=== PATIENT | female | born 2000 | race Two or more races ===

== ENCOUNTER 2021-08-08 15:40 | Outpatient (CLI) | payer OTHER | END 2021-08-08 16:58 | disposition home or self-care (01) | LOC: PRENATAL 15:40 | PROVIDERS: ATTEND Obstetrics & Gynecology Maternal & Fetal Medicine | DX: O35.0XX0 Maternal care for (suspected) central nervous system malformation in fetus, not applicable or unspecified (principal); O35.3XX0 Maternal care for (suspected) damage to fetus from viral disease in mother, not applicable or unspecified; Z3A.20 20 weeks gestation of pregnancy ==

== ENCOUNTER 2021-12-23 19:39 | Inpatient (IN) | payer OTHER ==
[~2021-12-23] VITALS: Ht 165.1 cm; Wt 86.2 kg
[2021-12-23] MEDS ORDERED: PRENATAL CAPLE1 EAC1 PO (20:09)
== END 2021-12-26 13:10 | disposition home or self-care (01) | DRG 807 ==
LOC: OBS/DEL 19:39 → OB/GYN 12-24 01:26 → LDR 12-24 01:26 → OB/GYN 12-24 09:35
PROVIDERS: ADMIT Obstetrics & Gynecology; ATTEND Obstetrics & Gynecology
PROC: 10E0XZZ Delivery of Products of Conception, External Approach (ICD-10-PCS; principal; 2021-12-24)
PROC: 0KQM0ZZ Repair Perineum Muscle, Open Approach (ICD-10-PCS; 2021-12-24)
PROC: 4A1HXCZ Monitoring of Products of Conception, Cardiac Rate, External Approach (ICD-10-PCS; 2021-12-24)
DX: O70.1 Second degree perineal laceration during delivery (principal); Z37.0 Single live birth; Z3A.40 40 weeks gestation of pregnancy; Z20.822 Contact with and (suspected) exposure to COVID-19

== ENCOUNTER 2023-09-22 04:33 | Inpatient (IN) | payer OTHER ==
[~2023-09-22] VITALS: Ht 167.6 cm; Wt 73.5 kg
[~2023-09-22 04:33] MED LIST: PRENATAL CAPLE1 EAC1 PO
--- NOTE | 2023-09-22 04:58 | NUR ---
SE RECIBE PTE ALERTA Y ORIENTADA X3. REFIERE SANGRADO VAGINAL DESDE LA 1AM. EMABRAZADA DE [address] JONY OWENS. SE MIDE SV Y SE UBICA
[2023-09-22] MEDS ORDERED: KETOROLAC TROMETHAMINE 30 MG VIAL IV ONE (05:45)
[2023-09-22] MEDS ORDERED: ONDANSETRON HCL 2 MG/ML VIAL IV ONE (05:45)
[2023-09-22] MEDS ORDERED: RINGERS SOLUTION,LACTATED 1,000 ML IV SCH (05:45)
--- NOTE | 2023-09-22 06:01 | NUR ---
PTE ALERTA Y ORIENTADA X3 ES EVALALUDA OR EL DR. COUCH. SE ORIENTA SOBRE TRATAMIENTO, VERBALIZA ENTENDER. SE CANALIZA, SE COLECTAN MUESTRAS DE LAB Y SE ADMINISTRA MEDICAMENTO MARELY ORDEN MEDICA BAJO MEDIDAS ASEPTICAS.
--- NOTE | 2023-09-22 07:57 | NUR ---
SE RECIBE PTE ALERTA Y ORIENTADA X3 LA MISMA CON CANALIZACION CON H/L POR DONDE BAJA R/L @150ML/HR. SE LLEVAN PACEINTE PARA SONOGRAFIA LUEGO DE VITALES.
[2023-09-22 08:22] LABS: ALBUMIN 3.4 gm/dL (3.4-5.0); BILIRUBIN TOTAL 1.01 mg/dL (0.3-1.2); CALCIUM 9.5 mg/dL (8.5-10.1); CREATININE SERUM 0.55 mg/dL (0.55-1.02); GFR 134.67; GLOBULINA 3.8 G/DL (2.4-3.5); POTASSIUM 3.51 mEq/L (3.5-5.1); TOTAL PROTEIN 7.2 gm/dL (6.4-8.2)
[2023-09-22 09:18] LABS: HEMOGLOBIN 11.3 g/dL (12.0-15.00); MEAN CORPUSCULAR HEMOGLOBIN 25.2 pg (27.00-32.0); MEAN CORPUSCULAR HGB CONC 33.2 g/dl (32.0-36.0); PLATELET COUNT 283 K/uL (150-450); RED BLOOD COUNT 4.47 M/uL (4.00-6.00); RED CELL DISTRIBUTION WIDTH 14.9 % (11.5-14.5)
[2023-09-22] MEDS ORDERED: MEPERIDINE HCL/PF 25 MG/ML VIAL IM STA (09:52)
[2023-09-22] MEDS ORDERED: PROMETHAZINE HCL 25 MG/ML AMPUL IM STA (09:53)
[2023-09-22] MEDS ORDERED: OXYTOCIN 20 UNITS/500ML RL PIGGYBAG IV STA (09:54)
--- NOTE | 2023-09-22 10:20 | NUR ---
SE EDUCA A PACIENTE SOBRE ORDENES NUEVAS DE DR WILLS LA MISMA REFIERE ENTENDER. SE REALIZAN MUESTRAS MARELY ORDEN MEDICA Y SE ENVIAN DE FORMA INMEDIATA A LAB. SE REALIZAN Y SE EDUCA A PTE SOBRE USO Y EFECTO DE MEDICACION MARELY ORDEN MEDICA Y LA MISMA REFIERE ENTENDER. SE LINUS PACIENTE EN ESPERA DE GINECOLOGO POR EL CUAL ESTA CONSULTADO.
[2023-09-22 10:26] LABS: HEMATOCRIT 30.4 % (36.0-45.00); HEMOGLOBIN 10.3 g/dL (12.0-15.00); MEAN CORPUSCULAR HEMOGLOBIN 25.7 pg (27.00-32.0); MEAN CORPUSCULAR HGB CONC 33.9 g/dl (32.0-36.0); PLATELET COUNT 251 K/uL (150-450); RED CELL DISTRIBUTION WIDTH 14.6 % (11.5-14.5)
[2023-09-22] MEDS ORDERED: OXYTOCIN 1,000 ML IV SCH (11:00)
[2023-09-22] MEDS ORDERED: OxyCODONE HCL/APAP UD (PERCOCET) PO PRN (11:00)
[2023-09-22 11:02] LABS: INR 0.96; PARTIAL THROMBOPLASTIN TIME 24.5 SECONDS (22.0-34.0); PROTHROMBIN TIME 10.1 SECONDS (9.0-11.5)
== END 2023-09-23 17:21 | disposition home or self-care (01) | DRG 779 ==
LOC: ER 04:34 → OB/GYN 12:33
PROVIDERS: General Practice; ADMIT Obstetrics & Gynecology; ATTEND Obstetrics & Gynecology
PROC: BU4CZZZ Ultrasonography of Uterus and Ovaries (ICD-10-PCS; principal; 2023-09-22)
PROC: 3E033VJ Introduction of Other Hormone into Peripheral Vein, Percutaneous Approach (ICD-10-PCS; 2023-09-22)
DX: O03.9 Complete or unspecified spontaneous abortion without complication (principal); Z20.822 Contact with and (suspected) exposure to COVID-19